=== PATIENT | male | born 1980 | race African-American/Black ===

== ENCOUNTER 2017-02-14 10:32 | Emergency (ER) | payer OTHER, MEDICAID ==
[~2017-02-14] VITALS: Ht 185.4 cm; Wt 98.4 kg
[2017-02-14 10:35] VITALS: BP 152/103
== END 2017-02-14 12:00 | disposition home or self-care (01) ==
LOC: ER 10:32
DX: S61.431A Puncture wound without foreign body of right hand, initial encounter (principal); S60.221A Contusion of right hand, initial encounter; F17.210 Nicotine dependence, cigarettes, uncomplicated; W22.8XXA Striking against or struck by other objects, initial encounter; Y93.89 Activity, other specified; Y92.89 Other specified places as the place of occurrence of the external cause; Y99.8 Other external cause status
CPT/HCPCS: 73130